=== PATIENT | male | born 1985 | race Two or more races ===

== ENCOUNTER → 2024-12-28 | Outpatient (CLI) | payer MEDICAID, SELFPAY ==
--- NOTE | 2024-12-28 | XR_ITS ---
Examination: Left femur 2 views Technique one AP lateral left femur 2 views Date and time: December 28, 2024 1257 hours INDICATIONS: Injury to the leg several years ago with persistent femur pain. FINDINGS: Mild narrowing left hip joint No hip fracture or dislocation Shaft of the femur intact IMPRESSION: Mild narrowing left hip joint
--- NOTE | 2024-12-28 | XR_ITS ---
Examination: Foot bilateral, 6 views Technique: AP, oblique, lateral views each foot total 6 views Date and time of exam: December 28, 2024 1237 hours INDICATIONS: Injured the right foot several years ago with persistent foot pain. FINDINGS: Congenitally shortened bilateral fourth metacarpals Bilateral mild narrowing first metatarsophalangeal joints No fractures involving either foot No dislocations. No cortical bone destruction. No foreign body IMPRESSION: Bilateral mild narrowing first metatarsophalangeal joints Right lateral congenitally shortened fourth metacarpals
--- NOTE | 2024-12-28 | XR_ITS ---
Examination: Lumbar spine 7 views TECHNIQUE: AP, lateral, coned lateral lower lumbar spine, standing lateral flexion standing lateral extension, WHITE, DAVID 7 views Date and time: December 28, 2024 1237 hours INDICATIONS: Lower back pain radiating to the legs several years. FINDINGS: Lumbar levoscoliosis 8 degrees No lumbar fracture Mild disc narrowing posteriorly L5-S1 Adequate range of motion between flexion and extension No spondylolisthesis IMPRESSION: Mild disc narrowing posteriorly L5-S1
== END | disposition home or self-care (01) ==
LOC: CDIM 11:44
PROVIDERS: PCP Physician Assistant; Referring Provider Physician Assistant; Visit Provider Physician Assistant
DX: M25.872 Other specified joint disorders, left ankle and foot (principal); M25.871 Other specified joint disorders, right ankle and foot; M51.87 Other intervertebral disc disorders, lumbosacral region; M25.852 Other specified joint disorders, left hip
CPT/HCPCS: 72114; 73552; 73630